=== PATIENT | male | born 1945 | race Caucasian/White ===

== ENCOUNTER 2017-12-09 10:48 | Day surgery (SDC) | payer MEDICARE, OTHER ==
[~2017-12-09] VITALS: Ht 175.3 cm; Wt 81.6 kg
[~2017-12-09 10:48] MED LIST: ATOR10 PO; Aspir 8181 MG; CEPH500 PO; HYDACE5 PO; LEVSOD125 PO; RXHYD5325 PO; TADA10TA PO; [UNRECOGNIZED DRUG - OTHER]
== END 2017-12-09 13:43 | disposition home or self-care (01) ==
LOC: ORSCSDS 10:48
PROVIDERS: Internal Medicine Gastroenterology
PROC: 0DBM8ZX Excision of Descending Colon, Via Natural or Artificial Opening Endoscopic, Diagnostic (ICD-10-PCS; principal; 2017-12-09 12:15)
PROC: 0DBH8ZX Excision of Cecum, Via Natural or Artificial Opening Endoscopic, Diagnostic (ICD-10-PCS; principal; 2017-12-09 12:15)
PROC: 0DBL8ZX Excision of Transverse Colon, Via Natural or Artificial Opening Endoscopic, Diagnostic (ICD-10-PCS; principal; 2017-12-09 12:15)
PROC: 0DBK8ZX Excision of Ascending Colon, Via Natural or Artificial Opening Endoscopic, Diagnostic (ICD-10-PCS; principal; 2017-12-09 12:15)
DX: Z12.11 Encounter for screening for malignant neoplasm of colon (principal); D12.0 Benign neoplasm of cecum; D12.2 Benign neoplasm of ascending colon; D12.3 Benign neoplasm of transverse colon; D12.4 Benign neoplasm of descending colon; K64.8 Other hemorrhoids; K57.30 Diverticulosis of large intestine without perforation or abscess without bleeding; Z86.010 Personal history of colon polyps; E78.00 Pure hypercholesterolemia, unspecified; Z83.71 Family history of colonic polyps; E07.9 Disorder of thyroid, unspecified; Z79.899 Other long term (current) drug therapy
CPT/HCPCS: 88305; J7120

== ENCOUNTER 2018-12-11 06:05 | Day surgery (SDC) | payer MEDICARE, OTHER ==
[~2018-12-11] VITALS: Ht 175.3 cm; Wt 85.5 kg
[~2018-12-11 06:05] MED LIST changes: -Aspir 8181 MG; +Aspir 8181 MG PO; +CHOL10002 PO; +Garlic X400 MG PO; +METAMUCIL POWD575 GM PO
--- NOTE | 2018-12-11 06:36 | NUR ---
History, Chart, Medications and Allergies reviewed before start of procedure. Patient confirms NPO status and agrees with scheduled surgery. Patient reports completing Chlorhexadine shower X2 prior to admission to hospital. Patient States Post-Procedure ride home has been arranged with his , Lucia.
--- NOTE | 2018-12-11 09:37 | NUR ---
FROM PACU TO STEP VSS GIVEN WATER AND JUICE.
--- NOTE | 2018-12-11 10:17 | NUR ---
Discharge instructions reviewed with patient. Patient verbalizes understanding. Copy given to patient to take home. Patient States Post-Procedure ride home has been arranged. Discharged via wheelchair to private car for ride home.
== END 2018-12-11 12:00 | disposition home or self-care (01) ==
LOC: ORSCMMR 06:05 → ORD 07:30 → ORSCMMR 07:30
PROVIDERS: Surgery
PROC: 0KB60ZZ Excision of Left Shoulder Muscle, Open Approach (ICD-10-PCS; principal; 2018-12-11 07:30)
DX: D17.9 Benign lipomatous neoplasm, unspecified (principal); E03.9 Hypothyroidism, unspecified; Z79.82 Long term (current) use of aspirin; Z79.899 Other long term (current) drug therapy
CPT/HCPCS: 88304; J1100; J1885; J2250; J2405; J3010; J7120

== ENCOUNTER 2020-03-15 06:12 | Day surgery (SDC) | payer MEDICARE, OTHER ==
[~2020-03-15] VITALS: Ht 172.7 cm; Wt 82.5 kg
[2020-05-02] MEDS ORDERED: Aspirin EC81 MG PO (07:49)
== END 2020-03-15 08:13 | disposition home or self-care (01) ==
LOC: ORSCSDS 06:12
PROVIDERS: Ophthalmology
PROC: 08RJ3JZ Replacement of Right Lens with Synthetic Substitute, Percutaneous Approach (ICD-10-PCS; principal; 2020-03-15 07:30)
DX: H25.11 Age-related nuclear cataract, right eye (principal); E03.9 Hypothyroidism, unspecified; Z79.899 Other long term (current) drug therapy; Z79.82 Long term (current) use of aspirin
CPT/HCPCS: J2001; J2250; J3010; J3301; J7040; V2632

== ENCOUNTER → 2021-01-23 | Outpatient (CLI) | payer MEDICARE, OTHER ==
[~2021-01-23] MED LIST changes: +Aspirin EC81 MG PO
== END | disposition home or self-care (01) ==
LOC: LAB 14:01 → LAB SHORT 14:01
DX: D48.5 Neoplasm of uncertain behavior of skin (principal)
CPT/HCPCS: 88305

== ENCOUNTER 2021-04-26 07:15 | Day surgery (SDC) | payer MEDICARE, OTHER ==
[~2021-04-26] VITALS: Ht 172.7 cm; Wt 80.5 kg
== END 2021-04-26 09:29 | disposition home or self-care (01) ==
LOC: ORSCSDS 07:15
PROVIDERS: Internal Medicine Gastroenterology
PROC: 0DBL8ZX Excision of Transverse Colon, Via Natural or Artificial Opening Endoscopic, Diagnostic (ICD-10-PCS; principal; 2021-04-26 08:45)
DX: Z12.11 Encounter for screening for malignant neoplasm of colon (principal); Z86.010 Personal history of colon polyps; D12.5 Benign neoplasm of sigmoid colon; E03.9 Hypothyroidism, unspecified; E78.00 Pure hypercholesterolemia, unspecified; Z79.899 Other long term (current) drug therapy; Z79.82 Long term (current) use of aspirin
CPT/HCPCS: 88305; J2704; J7120

== ENCOUNTER → 2022-07-30 | Outpatient (CLI) | payer MEDICARE, OTHER | LOC: PLD 11:41 → LAB SHORT 11:41 | DX: D04.39 Carcinoma in situ of skin of other parts of face (principal) | CPT/HCPCS: 88305 ==

== ENCOUNTER → 2022-11-11 | Outpatient (CLI) | payer MEDICARE, OTHER | LOC: LAB SHORT 11:06 → LAB 11:06 | DX: L08.0 Pyoderma (principal) | CPT/HCPCS: 87070; 87077; 87205 ==

== ENCOUNTER 2024-06-29 07:17 | Day surgery (SDC) | payer MEDICARE, OTHER ==
[~2024-06-29] VITALS: Ht 172.7 cm; Wt 82.1 kg
[2024-06-29] MEDS ORDERED: Lactated Ringer's 1,000 ML IV ONE ×2 (07:29→08:15)
[2024-06-29] MEDS ORDERED: propofoL 50 ML IV ONE (07:29)
[2024-06-29] MEDS ORDERED: ERGO400 (07:42)
--- NOTE | 2024-06-29 09:34 | NUR ---
06/29/24 0934 Zoe Fajardo DIVERTICULOSIS AND HIGH FIBER PAMPH GIVEN
[2024-06-29 09:42] VITALS: BP 115/82
== END 2024-06-29 09:35 | disposition home or self-care (01) ==
LOC: ORSCSDS 07:17
PROVIDERS: Specialist
PROC: 0DBN8ZX Excision of Sigmoid Colon, Via Natural or Artificial Opening Endoscopic, Diagnostic (ICD-10-PCS; principal; 2024-06-29 08:45)
DX: Z12.11 Encounter for screening for malignant neoplasm of colon (principal); Z86.0101 Personal history of adenomatous and serrated colon polyps; D12.5 Benign neoplasm of sigmoid colon; K64.8 Other hemorrhoids; K64.4 Residual hemorrhoidal skin tags; E78.5 Hyperlipidemia, unspecified; E07.9 Disorder of thyroid, unspecified; Z79.899 Other long term (current) drug therapy
CPT/HCPCS: 88305; J2704; J7120